=== PATIENT | male | born 2005 | race Caucasian/White ===

== ENCOUNTER 2025-08-21 00:38 | Emergency (ER) | payer SELFPAY ==
[~2025-08-21] VITALS: Ht 172.7 cm; Wt 73.0 kg
[2025-08-21 00:42] VITALS: O2SAT 100
[2025-08-21] MEDS: ACETAMINOPHEN 325MG TABLET PO ONE (01:21)
[2025-08-21] MEDS ORDERED: LIDO700A30 TP (01:26)
[2025-08-21 02:18] VITALS: BP 141/83; PULSE 99; RESP 16; TEMP 36.6; O2SAT 99
== END 2025-08-21 02:37 | disposition home or self-care (01) ==
LOC: ER 00:38
DX: M79.602 Pain in left arm (principal)
CPT/HCPCS: 73110; 99283